=== PATIENT | male | born 1995 | race Caucasian/White ===

== ENCOUNTER 2019-03-19 00:17 | Emergency (ER) | payer MEDICAID, OTHER, SELFPAY ==
[~2019-03-19] VITALS: Ht 177.8 cm; Wt 81.4 kg
[2019-03-19 00:19] VITALS: BP 120/75
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
[2019-03-19] MEDS ORDERED: LIDOCAINE-MPF 1%, 5ML ONE (00:35)
[2019-03-19] MEDS ORDERED: LIDOCAINE 1%, 10ML INFIL ONE (01:00)
[2019-03-19] MEDS ORDERED: LIDOCAINE-MPF 1%, 5ML INFIL ONE (01:00)
[2019-03-19] MEDS ORDERED: NEOSPORIN OINT. PKT 1 PACKET ONE (01:21)
--- NOTE | 2019-03-19 01:22 | NUR ---
BE[employer] APPRENTICE AT BEDSIDE FOR WOUND DRESSING
== END 2019-03-19 01:32 | disposition home or self-care (01) ==
LOC: ED 01:31
DX: S61.211A Laceration without foreign body of left index finger without damage to nail, initial encounter (principal); W26.0XXA Contact with knife, initial encounter; Y93.89 Activity, other specified; Y92.009 Unspecified place in unspecified non-institutional (private) residence as the place of occurrence of the external cause; Y99.8 Other external cause status
CPT/HCPCS: 12041; 99284

== ENCOUNTER 2019-03-25 20:49 | Emergency (ER) | payer SELFPAY ==
[~2019-03-25] VITALS: Ht 180.3 cm; Wt 80.6 kg
[2019-03-25 20:50] VITALS: BP 122/82
== END 2019-03-25 21:05 | disposition home or self-care (01) ==
LOC: ED 20:59
DX: S61.211D Laceration without foreign body of left index finger without damage to nail, subsequent encounter (principal); X58.XXXD Exposure to other specified factors, subsequent encounter
CPT/HCPCS: 99281

== ENCOUNTER 2020-07-28 10:41 | Emergency (ER) | payer BC ==
[~2020-07-28] VITALS: Ht 177.8 cm; Wt 73.2 kg
[2020-07-28 11:02] VITALS: BP 134/86
== END 2020-07-28 11:59 | disposition home or self-care (01) ==
LOC: ED 11:30
DX: F51.01 Primary insomnia (principal); F41.9 Anxiety disorder, unspecified
CPT/HCPCS: 99283